=== PATIENT | male | born 1945 | race Caucasian/White ===

== ENCOUNTER → 2019-06-15 10:22 | Outpatient (REF) | payer MEDICARE, SELFPAY | LOC: ANHLAB 10:22 | PROVIDERS: PCP Family Medicine; Visit Provider Nurse Practitioner | DX: C44.311 Basal cell carcinoma of skin of nose (principal) | CPT/HCPCS: 88305; 88331 ==

== ENCOUNTER → 2021-08-07 13:49 | Outpatient (REF) | payer MEDICARE, SELFPAY | LOC: ANHLAB 13:49 | PROVIDERS: PCP Family Medicine; Visit Provider Nurse Practitioner | DX: D23.61 Other benign neoplasm of skin of right upper limb, including shoulder (principal) | CPT/HCPCS: 88305 ==

== ENCOUNTER → 2021-09-05 09:36 | Outpatient (REF) | payer MEDICARE, SELFPAY | LOC: ANHLAB 09:36 | PROVIDERS: PCP Family Medicine; Visit Provider Nurse Practitioner | DX: R22.9 Localized swelling, mass and lump, unspecified (principal) | CPT/HCPCS: 88304 ==

== ENCOUNTER 2022-09-18 12:46 | Outpatient (NON) | payer MEDICARE, SELFPAY | END 2022-09-18 12:47 | disposition home or self-care (01) | LOC: ANHLAB 09-19 12:49 | PROVIDERS: PCP Family Medicine; Visit Provider Nurse Practitioner | DX: C44.519 Basal cell carcinoma of skin of other part of trunk (principal) | CPT/HCPCS: 88305 ==

== ENCOUNTER 2022-10-01 14:06 | Outpatient (NON) | payer MEDICARE, SELFPAY | END 2022-10-01 14:07 | disposition home or self-care (01) | LOC: ANHLAB 14:07 | PROVIDERS: PCP Family Medicine; Visit Provider Nurse Practitioner | DX: C44.519 Basal cell carcinoma of skin of other part of trunk (principal) | CPT/HCPCS: 88305; 88331; 88332 ==